=== PATIENT | male | born 1950 | race Caucasian/White ===

== ENCOUNTER 2025-04-09 19:21 | Emergency (ER) | payer MEDICARE, OTHER, SELFPAY ==
[2025-04-09 19:28] VITALS: BP 156/91
[2025-04-09 20:07] LABS: Hematocrit 45.0 % (39.0-52.0); Hemoglobin 15.9 g/dL (13.0-18.0); Mean Corp Hgb Conc. 35.3 g/dL (33.0-37.0); Mean Corpuscular Volume 88.8 fL (80.0-94.0); Nucleated Red Blood Cells % 0 % (-); Platelet Count 261 10^3/uL (130-400); Red Cell Dist. Width 12.3 % (11.5-14.5)
[2025-04-09 20:29] LABS: ALT (SGPT) 31 U/L (0-50); AST (SGOT) 28 U/L (17-59); Albumin 4.5 g/dl (3.5-5.0); Alkaline Phosphatase 70 U/L (38-126); Blood Urea Nitrogen 26 mg/dl (9-20); Calcium 9.8 mg/dl (8.4-10.2); Carbon Dioxide 30 mmol/L (22-30); Chloride 103 mmol/L (98-107); Glucose 88 mg/dl (70-99); Lipase 115 U/L (23-300); Potassium 4.8 mmol/L (3.5-5.1); Sodium 137 mmol/L (135-145); Total Protein 7.1 g/dl (6.3-8.2); eGFR > 60.00
[2025-04-09 23:20] VITALS: BMI 25.1
[2025-04-10] MEDS: MAALOX 40 PO (00:20)
--- NOTE | 2025-04-10 00:37 | ED.GENMED ---
History of Present Illness
General
Chief Complaint: Abdominal Pain
Time Seen by Provider: 04/09/25 23:19
History of Present Illness
History of Present Illness:
75-year-old male with no significant past medical history presents to the emergency department for evaluation of upper abdominal pain that radiates in toward the chest for the past 2 weeks. Acutely worsened over the past several days. He notes
that he has had URI symptoms for 1 week and his primary care physician started him on doxycycline, he took 3 doses of this before his GI symptoms worsen dramatically, he was then switched to cefuroxime which she has not yet started. Reports that
supine position worsens his pain as well. Denies any fevers or chills. No dyspnea, vomiting, or diarrhea. No black or bloody stool.
Past History
Social History
Tobacco: Non-smoker
Personal:
Employment: Employed
Review of Systems
Review of Systems
Allergies reviewed?: Yes
All Other Systems: ROS reviewed and negative except as documented in HPI and ROS
Phy Exam
Physical Exam
Physical Exam:
GEN: Well appearing, NAD, WDWN
HEENT: Oral mucosa moist, no scleral icterus
Cardiac: Regular rate and rhythm, no murmur
Lung: No respiratory distress, no tachypnea, lungs clear to auscultation
Abdomen: Soft, mild tenderness to the epigastrium, no rigidity, negative Baez sign
MSK: No gross deformity or injuries
Skin: Good color, no pallor or jaundice, no rashes
Neuro: AO x3, moves all extremities freely
Psych: Calm, cooperative
Course
Orders/Labs/Results
Orders:
Orders
04/09/25 19:31
Electrocardiogram (*1) Urgent
Reason for Study: Abdominal Pain
EKG- Treatment ONCE
IV Insert/Care/Rem.- Treatment PRN
04/09/25 19:42
Complete Blood Count/With Diff Urgent
Comprehensive Metabolic Panel Urgent
Lipase Urgent
04/09/25 23:36
Troponin I Urgent
04/10/25 00:00
US Abdomen Complete/Upper Urgent
Reason For Exam: epigastric pain
04/10/25 00:04
Mag Hydrox/Al Hydrox/Simeth [Maalox] 30 ml Phenobarb/Hyoscy/Atropine/Scop [] 10 ml Viscous Lidocaine 2% [Xylocaine Viscous Cup] 10 ml PO NOW
04/10/25 00:19
Mag Hydrox/Al Hydrox/Simeth [Maalox] 30 ml .ROUTE .STK-MED ONE
Phenobarb/Hyoscy/Atropine/Scop [] 10 ml .ROUTE .STK-MED ONE
04/10/25 00:20
Viscous Lidocaine 2% [Xylocaine Viscous Cup] 15 ml .ROUTE .STK-MED ONE
04/10/25 02:23
Pantoprazole [Protonix IV] 40 mg IV NOW STA
Abnormal Lab Results
04/09/25
19:42
MCH 31.4 H pg
(27.0-31.0)
BUN 26 H mg/dl
(9-20)
04/09/25 19:42
04/09/25 19:42
Vital Signs
Initial and Last Documented VS:
Initial Vital Signs
Temp Pulse Resp BP Pulse Ox
97.7 F 58 18 156/91 97
04/09/25 19:28 04/09/25 19:28 04/09/25 19:28 04/09/25 19:28 04/09/25 19:28
Last Documented Vital Signs
Temp Pulse Resp BP Pulse Ox
97.7 F 79 16 136/87 98
04/09/25 19:28 04/10/25 03:10 04/10/25 03:10 04/10/25 03:10 04/10/25 03:10
MDM/Problems Addressed
MDM/Problems Addressed:
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
Comment
Comment:
EKG independently interpreted by me shows sinus bradycardia at a rate of 58, some patient motion artifact particularly in the inferior leads limits interpretation however no gross ST changes are seen
*Pulse Oximetry
SaO2: 97
Oxygen Mode of Delivery: Room air
Patient hypoxic: no
*Critical Care Note
Total Time (30-74mins, 75-104mins- exclusive of procedures): Not Applicable
ED Attending Note
-
Portions of this chart may have been created with voice recognition software.� Occasional wrong word or��sound alike� substitutions may have occurred due to the inherent limitations of voice recognition software.
Discharge Plan
Departure
Patient Disposition: Home (Routine Discharge)
Date of Disposition: 04/10/25
Time of Disposition: 02:26
Patient with high blood pressure during this ER visit?: Yes
Condition: Good
Discharge Problem:
GERD (gastroesophageal reflux disease)
Instructions: Acid Reflux and GERD in Adults (DC), Gastritis (DC), BLOOD PRESSURE
Prescriptions:
New
pantoprazole 20 mg tablet,delayed release (DR/EC)
20 mg PO DAILY 14 Days Qty: 14 0RF
Referrals:
Rashawn Grace DO [Family Provider, Family Practice]
Janette Nuñez DO [Active, Gastroenterology] - Call in 1-3 days for appt
Activity Restrictions/Additional Instructions:
Pantoprazole has been sent to her pharmacy. Please take 1 tablet once daily for 2-week trial.
As discussed, your ultrasound does not show any evidence of gallbladder disease. Your troponin and blood work is normal. Please call attached number to schedule follow-up with GI, you may need endoscopy for further evaluation of your symptoms.
PLEASE RETURN TO ER SHOULD YOU DEVELOP RECTAL BLEEDING, DARK TARRY STOOLS, INTRACTABLE NAUSEA OR VOMITING, CHEST PAIN, SHORTNESS OF BREATH, OR ANY OTHER SIGNS OR SYMPTOMS WORRISOME TO YOU.
Interventions
Interventions:
*Risk Screen - Suicide Last Done: 04/09/25 19:28
*General Assessment Last Done: 04/09/25 23:21
*Neglect/Abuse Screening Last Done: 04/09/25 19:28
*ED COVID-19 Vaccine History Last Done: 04/09/25 23:20
*ED Influenza Vaccine History Last Done: 04/09/25 23:20
[facility] Fall Risk Assessment Tool Last Done: 04/09/25 23:23
*Nursing Disposition Last Done: 04/10/25 03:10
IS-Swsqop-Nlzmiftlbx Assessment Last Done: 04/09/25 23:18
Discharge Date and Time
Print Language: THAI
[2025-04-10 01:39] LABS: Troponin I 0.013 ng/ml
[2025-04-10 02:00] VITALS: BP 131/90
[2025-04-10] MEDS: PROTONIX IV 40 MG IV (02:42)
[2025-04-10 03:10] VITALS: BP 136/87
== END 2025-04-10 03:10 | disposition home or self-care (01) ==
LOC: EMR 19:21
PROVIDERS: Emergency Medicine; Physician Assistant; EMERGENCY PHYSICIAN Emergency Medicine; FAMILY PHYSICIAN Family Medicine
DX: K21.9 Gastro-esophageal reflux disease without esophagitis (principal); R03.0 Elevated blood-pressure reading, without diagnosis of hypertension
CPT/HCPCS: 99284; 96374; 76700; 80053; 83690; 84484; 85025; 93005